=== PATIENT | male | born 1975 | race African-American/Black ===

== ENCOUNTER 2017-07-11 16:52 | Emergency (ER) | payer MEDICAID ==
[~2017-07-11] VITALS: Ht 167.6 cm; Wt 98.0 kg
[2017-07-11 17:41] LABS: BASOPHILS % 0.9 % (0.0-2.0); EOSINOPHILS % 2.6 % (0.0-5.0); HEMOGLOBIN. 15.4 g/dL (14.0-18.0); LYMPHOCYTES % 45.6 % (20.0-50.0); MEAN CORPUSCULAR HEMOGLOBIN 28.7 pg (28.0-32.0); MEAN PLATELET VOLUME 8.8 fl (7.4-10.4); NEUTROPHILS % 39.9 % (40.0-76.0); PLATELET 229 x1000/uL (130-400); PROTHROMBIN TIME 10.5 sec (9.4-11.6); RED BLOOD CELL COUNT 5.37 mill/uL (4.7-6.1); RED CELL DISTRIBUTION WIDTH 16.2 % (11.6-14.6)
[2017-07-11 17:42] LABS: CARBON DIOXIDE 32 mEq/L (21-32); CHLORIDE 104 mEq/L (98-107)
[2017-07-11 17:49] LABS: CREATINE KINASE 166 IU/L (39-308); TROPONIN I < 0.02 ng/mL (0.00-0.04)
[2017-07-11] MEDS ORDERED: KETOROLAC 30MG/ML VIAL IV ONE (18:00)
[2017-07-11 18:03] LABS: *AMPHETAMINES SCREEN URINE NEGATIVE (NEGATIVE); *BARBITURATES SCREEN URINE NEGATIVE (NEGATIVE); *BENZODIAZEPINES SCREEN URINE NEGATIVE (NEGATIVE); *COCAINE SCREEN URINE NEGATIVE (NEGATIVE); CANNABINOID URINE SCREEN NEGATIVE (NEGATIVE); METHADONE URINE SCREEN NEGATIVE (NEGATIVE); OPIATES URINE SCREEN NEGATIVE (NEGATIVE); PHENCYCLIDINE URINE SCREEN NEGATIVE (NEGATIVE)
[2017-07-11 18:37] VITALS: BP 127/74
== END 2017-07-11 18:38 | disposition home or self-care (01) ==
LOC: ER 17:04
DX: R07.9 Chest pain, unspecified (principal); I10 Essential (primary) hypertension; F17.290 Nicotine dependence, other tobacco product, uncomplicated
CPT/HCPCS: 36415; 71010; 80048; 80305; 82550; 82553; 83880; 84484; 85025; 85610; 85730; 93005; 96374; 99285; 99406; J1885; Z7610

== ENCOUNTER 2018-02-09 22:26 | Emergency (ER) | payer SELFPAY ==
[~2018-02-09] VITALS: Ht 167.6 cm; Wt 96.0 kg
[2018-02-09] MEDS ORDERED: ACETAMINOPHEN 325MG TABLET PO STA (23:16)
[2018-02-09] MEDS ORDERED: ASPIRIN 81MG TABLET PO ONE (23:30)
[2018-02-09 23:41] LABS: BASOPHILS % 0.8 % (0.0-2.0); EOSINOPHILS % 2.8 % (0.0-5.0); HEMATOCRIT. 41.9 % (42.0-52.0); HEMOGLOBIN. 14.8 g/dL (14.0-18.0); LYMPHOCYTES % 53.6 % (20.0-50.0); MEAN CORPUSCULAR HEMOGLOBIN 29.2 pg (28.0-32.0); MEAN CORPUSCULAR VOLUME 82.5 fL (80.0-94.0); MEAN PLATELET VOLUME 8.4 fl (7.4-10.4); MONOCYTES % 12.3 % (2.0-8.0); NEUTROPHILS % 30.5 % (40.0-76.0); PLATELET 240 x1000/uL (130-400); RED BLOOD CELL COUNT 5.07 mill/uL (4.7-6.1); RED CELL DISTRIBUTION WIDTH 16.1 % (11.6-14.6)
[2018-02-09 23:44] LABS: PROTHROMBIN TIME 10.1 sec (9.4-11.6)
[2018-02-09 23:51] LABS: CHLORIDE 106 mEq/L (98-107)
[2018-02-09 23:56] LABS: ETHANOL BLOOD < 10 mg/dL
[2018-02-10 04:27] VITALS: BP 114/68
== END 2018-02-10 15:20 | disposition home or self-care (01) ==
LOC: ER 02-10 08:22 → CANBEDREQ 02-10 16:06
DX: R07.89 Other chest pain (principal); F15.10 Other stimulant abuse, uncomplicated; I10 Essential (primary) hypertension; F17.200 Nicotine dependence, unspecified, uncomplicated
CPT/HCPCS: 36415; 71045; 80053; 83690; 83880; 84484; 85025; 85610; 93005; 99285; G0482; Z7610

== ENCOUNTER 2018-07-04 14:29 | Emergency (ER) | payer SELFPAY ==
[~2018-07-04] VITALS: Ht 167.6 cm; Wt 104.0 kg
[2018-07-04] MEDS ORDERED: SODIUM CHLORIDE 0.9% 1,000 ML IV ONE (15:02)
[2018-07-04 15:30] LABS: BASOPHILS % 1.2 % (0.0-2.0); EOSINOPHILS % 1.4 % (0.0-5.0); HEMATOCRIT. 45.6 % (42.0-52.0); HEMOGLOBIN. 15.6 g/dL (14.0-18.0); LYMPHOCYTES % 46.8 % (20.0-50.0); MEAN CORPUSCULAR HEMOGLOBIN 28.3 pg (28.0-32.0); MEAN CORPUSCULAR VOLUME 82.4 fL (80.0-94.0); MEAN PLATELET VOLUME 8.3 fl (7.4-10.4); MONOCYTES % 12.4 % (2.0-8.0); NEUTROPHILS % 38.2 % (40.0-76.0); PLATELET 248 x1000/uL (130-400); RED BLOOD CELL COUNT 5.53 mill/uL (4.7-6.1); RED CELL DISTRIBUTION WIDTH 15.7 % (11.6-14.6)
[2018-07-04 15:33] LABS: CHLORIDE 103 mEq/L (98-107)
[2018-07-04 15:41] LABS: T4 FREE 1.02 ng/dL (0.76-1.46)
[2018-07-04 16:36] VITALS: BP 137/32
== END 2018-07-04 16:54 | disposition home or self-care (01) ==
LOC: ER 14:29
DX: F41.0 Panic disorder [episodic paroxysmal anxiety] (principal); N17.9 Acute kidney failure, unspecified; I10 Essential (primary) hypertension; Z63.5 Disruption of family by separation and divorce; F17.210 Nicotine dependence, cigarettes, uncomplicated
CPT/HCPCS: 36415; 71045; 80053; 83880; 84439; 84443; 84484; 85025; 93005; 99285; J7030

== ENCOUNTER 2018-09-28 12:42 | Emergency (ER) | payer OTHER ==
[~2018-09-28] VITALS: Ht 165.1 cm; Wt 110.0 kg
[2018-09-28] MEDS ORDERED: SODIUM CHLORIDE 0.9% 1,000 ML IV ONE (12:59)
[2018-09-28] MEDS ORDERED: LORAZEPAM 2MG/ML CPJ IV ONE (13:15)
[2018-09-28 14:29] LABS: BASOPHILS % 0.5 % (0.0-2.0); EOSINOPHILS % 0.1 % (0.0-5.0); HEMATOCRIT. 41.2 % (42.0-52.0); HEMOGLOBIN. 14.5 g/dL (14.0-18.0); LYMPHOCYTES % 26.3 % (20.0-50.0); MEAN CORPUSCULAR HEMOGLOBIN 28.9 pg (28.0-32.0); MEAN CORPUSCULAR VOLUME 82.4 fL (80.0-94.0); MEAN PLATELET VOLUME 8.5 fl (7.4-10.4); MONOCYTES % 10.3 % (2.0-8.0); NEUTROPHILS % 62.8 % (40.0-76.0); PLATELET 266 x1000/uL (130-400); RED CELL DISTRIBUTION WIDTH 15.7 % (11.6-14.6)
[2018-09-28 14:33] LABS: CHLORIDE 104 mEq/L (98-107)
[2018-09-28 14:40] LABS: ETHANOL BLOOD 30 mg/dL
[2018-09-28 14:42] LABS: CLARITY URINE CLEAR (CLEAR); COLOR URINE YELLOW (YELLOW); KETONES URINE NEGATIVE (NEGATIVE); LEUKOCYTE ESTERASE URINE NEGATIVE (NEGATIVE); NITRITE URINE NEGATIVE (NEGATIVE); OCCULT BLOOD URINE NEGATIVE (NEGATIVE); PROTEIN URINE NEGATIVE (NEGATIVE); SPECIFIC GRAVITY URINE 1.004 (1.005-1.030); UROBILINOGEN URINE 0.2 E.U./dL (0.2-1.0)
[2018-09-28 14:44] LABS: CREATINE KINASE 462 IU/L (39-308)
[2018-09-28 14:59] LABS: *BARBITURATES SCREEN URINE NEGATIVE (NEGATIVE); *BENZODIAZEPINES SCREEN URINE NEGATIVE (NEGATIVE); *COCAINE SCREEN URINE PRESUMTIVE POSITIVE (NEGATIVE); METHADONE URINE SCREEN NEGATIVE (NEGATIVE); OPIATES URINE SCREEN NEGATIVE (NEGATIVE)
[2018-09-28 15:00] LABS: *AMPHETAMINES SCREEN URINE PRESUMTIVE POSITIVE (NEGATIVE); CANNABINOID URINE SCREEN PRESUMTIVE POSITIVE (NEGATIVE); PHENCYCLIDINE URINE SCREEN NEGATIVE (NEGATIVE)
[2018-09-28 16:49] VITALS: BP 137/84
== END 2018-09-28 16:53 | disposition left against medical advice (07) ==
LOC: ER 12:42
DX: T43.621A Poisoning by amphetamines, accidental (unintentional), initial encounter (principal); T40.5X1A Poisoning by cocaine, accidental (unintentional), initial encounter; T40.7X1A Poisoning by cannabis (derivatives), accidental (unintentional), initial encounter; R00.0 Tachycardia, unspecified; Y92.018 Other place in single-family (private) house as the place of occurrence of the external cause
CPT/HCPCS: 36415; 80053; 80305; 81003; 82550; 84484; 85025; 93005; 96374; 99284; G0482; J2060; J7030